=== PATIENT | female | born 2000 | race Two or more races ===

== ENCOUNTER 2024-12-23 03:46 | Emergency (ER) | payer BC, MEDICAID, SELFPAY ==
[2024-12-23 03:50] VITALS: BMI 26.4
[2024-12-23 03:51] VITALS: BP 120/59; PULSE 90; RESP 18; TEMP 36.6; O2SAT 96
[2024-12-23 03:53] VITALS: BMI 26.6
--- NOTE | 2024-12-23 04:10 | EKG_ITS ---
[facility] Test Date: 2024-12-23 Pat Name: CARLEEN DAVIES Department: Room: - Gender: Female [employer]: : 2000 Requested By: Arnulfo Macias Order Number: [id number] Reading MD: Arnulfo Macias Measurements Intervals Van Rate: 79 P: 31 TX: 140 QRS: 66 QRSD: 71 T: 45 QT: 345 QTc: 398 Interpretive Statements SINUS RHYTHM No previous ECG available for comparison /store/S0/[id number].pdf
--- NOTE | 2024-12-23 04:50 | PD.EDRME ---
Rapid Medical Screening Exam RME Arrival date/time: 12/23/24 03:46 24F with history of anxiety (not on meds) presents to ED with episode today where she woke up shaking, had SOB, dizziness, numbness, and CP. Patient denies URI symptoms. Separately, patient has had 2 weeks of dysuria and has not seen her PCP. Chief Complaint: General Adult/Misc Complain Time Seen by Provider: 12/23/24 04:10 Vital signs: Vital Signs Temperature 98 F 12/23/24 03:51 Pulse Rate 90 12/23/24 03:51 Respiratory Rate 18 12/23/24 03:51 Blood Pressure 120/59 L 12/23/24 03:51 Pulse Oximetry (%) 96 12/23/24 03:51 Oxygen Delivery Method Room Air 12/23/24 03:51
[2024-12-23] MEDS: DIAZEPAM 5 MG TABLET PO (04:55)
[2024-12-23 05:36] LABS: Collection Type, Urine Clean Catch
[2024-12-23 06:04] LABS: Bilirubin,Urine Negative (Negative); Blood,Urine Negative (Negative); Clarity,Urine Turbid (Clear/Hazy); Color,Urine Lt-Yellow (Lt Yel-Yel); Culture Indicated,Urine Not Indicated; Glucose, Urine Negative (Negative); HCG Qualitative,Urine Negative; Ketones,Urine Negative (Negative); Leukocyte Esterase,Urine Positive (Negative); Nitrite,Urine Negative (Negative); Protein,Urine Trace (Neg - Trace); RBC,Urine 3 /hpf (0-3); Specific Gravity,Urine 1.024 (1.001-1.035); Squamous Epithelial Cell,Urine 15 /hpf (0-5); Urobilinogen,Urine Negative mg/dL (0.0-1.0); WBC,Urine 9 /hpf (0-5)
[2024-12-23 06:37] LABS: Amphetamine/Methamp Scrn,U Negative (Negative); Barbiturate Screen,Urine Negative (Negative); Benzodiazepines Screen,Urine Negative (Negative); Benzoylecgonine Screen, Ur Negative (Negative); Fentanyl Screen,Urine Negative (Negative); Opiate Screen,Urine Negative (Negative); THC Screen,Urine Negative (Negative)
== END 2024-12-23 06:20 | disposition left against medical advice (07) ==
LOC: SERX 06:10
PROVIDERS: Physician Assistant; Emergency Provider Emergency Medicine; PCP Nurse Practitioner Family
DX: R06.02 Shortness of breath (principal); R42 Dizziness and giddiness; Z53.29 Procedure and treatment not carried out because of patient's decision for other reasons; F41.9 Anxiety disorder, unspecified; R20.0 Anesthesia of skin; R30.0 Dysuria
CPT/HCPCS: 80307; 81001; 81025; 93005; 99281; A9270